=== PATIENT | female | born 1955 | race Caucasian/White ===

== ENCOUNTER 2019-06-11 00:58 | Day surgery (SDC) | payer MEDICARE, SELFPAY ==
[2019-06-06 11:47] VITALS: BMI 25.0
[2019-06-11 09:54] VITALS: BP 123/85; PULSE 85; RESP 16; TEMP 36.6; O2SAT 100; BMI 25.2
[2019-06-11] MEDS: LACTATED RINGERS 1,000 ML 150 ML IV CONT (10:00)
--- NOTE | 2019-06-11 10:28 | WPDANESEPPF ---
Anes - Initial Pre Proc Eval Procedure: Operation Date: 06/11/19 11:00 Proposed Procedures p Screening Colonoscopy - Geremias Brandt MD Date/Time: 06/11/19 10:28 Surgeon: Geremias Brandt MD Pre Op Diagnosis: hx of colon polyps Patient Data Age: 64 Gender: F Height: 5 ft 2 in Weight: 62.6 kg Last Vital Signs Temp 36.6 C 06/11/19 09:54 Pulse 85 06/11/19 09:54 Resp 16 06/11/19 09:54 BP 123/85 06/11/19 09:54 Pulse Ox 100 06/11/19 09:54 Allergies Allergy/AdvReac Type Severity Reaction Status Date / Time tramadol Allergy Unknown Dizziness Verified 06/11/19 09:51 Home Medications Medication Instructions Recorded Confirmed Type oxybutynin chloride 5 mg 5 mg PO DAILY #90 tablet 01/30/19 06/11/19 Rx tablet,extended release 24 hr atorvastatin 10 mg tablet 10 mg PO .every other day tablet 06/03/19 06/11/19 History cyclobenzaprine 10 mg tablet 10 mg PO TID tablet 06/03/19 06/11/19 History calcium carbonate-vitamin D3 1 tablet PO DAILY 06/06/19 06/11/19 History [Calcium 500 + D] cetirizine [Zyrtec] 10 mg PO DAILY 06/06/19 06/11/19 History cranberry extract 50 mg PO DAILY 06/06/19 06/11/19 History cyanocobalamin (vitamin B-12) 1,000 mcg PO DAILY 06/06/19 06/11/19 History [Vitamin B-12] famotidine 10 mg PO DAILY 06/06/19 06/11/19 History inulin [Fiber Gummies] 1 g PO DAILY 06/06/19 06/11/19 History melatonin 5 mg PO HS PRN 06/06/19 06/11/19 History naproxen 250 mg PO BID PRN 06/06/19 06/11/19 History omega 5-vyv-jpo-fish oil [Fish Oil] 1 cap PO DAILY 06/06/19 06/11/19 History pyridoxine (vitamin B6) [Vitamin 25 mg PO DAILY 06/06/19 06/11/19 History B-6] turmeric 400 mg PO DAILY 06/06/19 06/11/19 History Patient hx anesthesia problems: none Family hx anesthesia problems: none PMFSH Surgical History Surgical History History of tubal ligation Family History Family History Father Hypertension Social History Social History Smoking packs per day: 1 Smoking cigarettes per day: 20.0 Years smoked: 30 Smoking pack-years: 30.00 Smoking status: Former smoker Tobacco type: cigarettes Second hand tobacco smoke exposure: No Smoking end date: 03/27/05 Alcohol intake: current Drinks per week: 8 Substance use: never Substance use type: does not use Gender identity (if verbalized by the patient): Female Anes - Eval Final PreProcedure Day of Procedure 06/11/19 10:28 Patient weight: normal Heart: regular rate and rhythm Lungs: decreased breath sounds Airway: Mallampati scale class II Neurological: alert and oriented Last oral intake: >/= 8 hours ASA classification: II Emergent: no Anesthetic plan: proceed Anesthesia type and monitoring: general GIVS and standard monitoring Informed Consent: The patient's anesthetic plan and its attendant risks and benefits were discussed with the patient/family/POA. Questions were solicited and answers provided to the satisfaction of the patient/family/POA.
--- NOTE | 2019-06-11 10:47 | PM.HPGS ---
History of Present Illness History of Present Illness Consent: Risks, benefits, and alternatives have been discussed and questions answered. Patient agrees to proceed with procedure. Chief complaint: hx of colon polyps Narrative: Maria Esther Rader is a 64 year old female Referred for screening colonoscopy. She has had polyps removed in the past. Her last colonoscopy was 7 years ago [facility] Surgical History Surgical History History of tubal ligation Family History Family History Father Hypertension Social History Social History Smoking packs per day: 1 Smoking cigarettes per day: 20.0 Years smoked: 30 Smoking pack-years: 30.00 Smoking status: Former smoker Tobacco type: cigarettes Second hand tobacco smoke exposure: No Smoking end date: 03/27/05 Alcohol intake: current Drinks per week: 8 Substance use: never Substance use type: does not use Gender identity (if verbalized by the patient): Female Meds Home Medications and Allergies Home Medications Medication Instructions Recorded Confirmed Type oxybutynin chloride 5 mg 5 mg PO DAILY #90 tablet 01/30/19 06/11/19 Rx tablet,extended release 24 hr atorvastatin 10 mg tablet 10 mg PO .every other day tablet 06/03/19 06/11/19 History cyclobenzaprine 10 mg tablet 10 mg PO TID tablet 06/03/19 06/11/19 History calcium carbonate-vitamin D3 1 tablet PO DAILY 06/06/19 06/11/19 History [Calcium 500 + D] cetirizine [Zyrtec] 10 mg PO DAILY 06/06/19 06/11/19 History cranberry extract 50 mg PO DAILY 06/06/19 06/11/19 History cyanocobalamin (vitamin B-12) 1,000 mcg PO DAILY 06/06/19 06/11/19 History [Vitamin B-12] famotidine 10 mg PO DAILY 06/06/19 06/11/19 History inulin [Fiber Gummies] 1 g PO DAILY 06/06/19 06/11/19 History melatonin 5 mg PO HS PRN 06/06/19 06/11/19 History naproxen 250 mg PO BID PRN 06/06/19 06/11/19 History omega 6-tyq-muk-fish oil [Fish Oil] 1 cap PO DAILY 06/06/19 06/11/19 History pyridoxine (vitamin B6) [Vitamin 25 mg PO DAILY 06/06/19 06/11/19 History B-6] turmeric 400 mg PO DAILY 06/06/19 06/11/19 History Allergies Allergy/AdvReac Type Severity Reaction Status Date / Time tramadol Allergy Unknown Dizziness Verified 06/11/19 09:51 Vital Signs Vital Signs - 24 hr 06/11/19 09:54 Temperature 36.6 C Pulse Rate 85 Respiratory Rate 16 Blood Pressure 123/85 Pulse Oximetry 100 Exam Resp: Auscultation: clear to auscultation bilaterally Cardio: Rate: regular rate Rhythm: regular rhythm GI: GI Palp: Yes Soft to palpation and No Tenderness to palpation present (GI) Assessment and Plan Assessment and plan (1) History of colon polyps: Code(s): Z86.010 - Personal history of colonic polyps Status: Acute Assessment and Plan: Colonoscopy with possible biopsy or polypectomy or cautery or injection of substances.
[2019-06-11 11:34] VITALS: BP 103/70; PULSE 87; RESP 16; O2SAT 97
[2019-06-11 11:44] VITALS: BP 101/68; PULSE 80; RESP 13; O2SAT 98
[2019-06-11 11:53] VITALS: BP 107/70; PULSE 71; RESP 14; O2SAT 98
== END 2019-06-11 12:14 | disposition home or self-care (01) ==
PROVIDERS: PCP Family Medicine; Visit Provider Internal Medicine Gastroenterology
PROC: 0DJD8ZZ Inspection of Lower Intestinal Tract, Via Natural or Artificial Opening Endoscopic (ICD-10-PCS; CPT 45378; principal; 2019-06-11 11:00)
DX: Z12.11 Encounter for screening for malignant neoplasm of colon (principal); D12.4 Benign neoplasm of descending colon; K64.8 Other hemorrhoids; Z87.891 Personal history of nicotine dependence
CPT/HCPCS: 45380; 88305; J2704; J7120

== ENCOUNTER → 2020-07-14 15:24 | Outpatient (CLI) | payer MEDICARE, SELFPAY ==
--- NOTE | ~2020-07-14 | MM_ITS ---
EXAMINATION: MM screening [facility] BI w papi HISTORY: Screening mammogram TECHNIQUE: Craniocaudal and mediolateral oblique 3-D tomosynthesis images were obtained and synthetic 2-D images were generated. CAD analysis was submitted and interpreted. COMPARISON: 12/05/2018, 12/01/2017, 10/13/2016 BREAST PARENCHYMAL COMPOSITION: There are scattered areas of fibroglandular density. FINDINGS: RIGHT BREAST: There is no evidence of suspicious mass, calcification, or architectural distortion to suggest malignancy. There has been no significant interval change. LEFT BREAST: An asymmetry is present in the anterior third of the upper breast 4 cm from the nipple o n the mediolateral oblique view. IMPRESSION: 1. Left breast asymmetry on the mediolateral oblique view. 2. Additional mammographic views and possible breast ultrasound are recommended. BI-RADS Category 0: Incomplete: Needs additional imaging evaluation. Reviewed, dictated and finalized at location A. IMPRESSION: 1. Left breast asymmetry on the mediolateral oblique view. 2. Additional mammographic views and possible breast ultrasound are recommended . BI-RADS Category 0: Incomplete: Needs additional imaging evaluation.
== END ==
PROVIDERS: PCP Family Medicine; Visit Provider Family Medicine
DX: Z12.31 Encounter for screening mammogram for malignant neoplasm of breast (principal); R92.8 Other abnormal and inconclusive findings on diagnostic imaging of breast
CPT/HCPCS: 77063; 77067

== ENCOUNTER → 2020-08-11 07:27 | Outpatient (CLI) | payer MEDICARE, SELFPAY ==
--- NOTE | ~2020-08-11 | MMUS_ITS ---
EXAMINATION: MM diagnostic mammo unilat LT, US breast LT complete HISTORY: Follow-up left breast asymmetry TECHNIQUE: Additional 3-D tomosynthesis images of the left breast were performed and synthetic 2-D im ages were generated. CAD analysis was submitted and interpreted. High resolution complete left breast ultrasound was performed. COMPARISON: Comparison to multiple prior studies sequentially, with oldest reviewed study dated 10/22. BREAST PARENCHYMAL COMPOSITION: Breast composed of scattered areas of fibroglandular density. FINDINGS: MAMMOGRAPHIC FINDINGS: There are no suspicious masses, calcifications or architectural distortion in the left breast to sugg est malignancy. ULTRASOUND: Complete left breast ultrasound: At 11:00, 5 cm from the nipple, there is a 3 mm cyst. No suspicious masses to suggest malignancy. IMPRESSION: 1. No evidence for malignancy in the left breast. 2. Routine yearly screening mammogram and regular clinical breast examination are recommended. BI-RADS Category 2: Benign finding(s). Reviewed, dictated and finalized at location A. IMPRESSION: 1. No evidence for malignancy in the left breast. 2. Routine yearly screening mammogram and regular clinical breast examination a re recommended. BI-RADS Category 2: Benign finding(s).
== END ==
PROVIDERS: PCP Family Medicine; Visit Provider Physician Assistant
DX: R92.8 Other abnormal and inconclusive findings on diagnostic imaging of breast (principal)
CPT/HCPCS: 76641; 77065

== ENCOUNTER → 2021-02-02 14:40 | Outpatient (CLI) | payer MEDICARE, SELFPAY ==
--- NOTE | ~2021-02-02 | XR_ITS ---
XR hip BI 2V w AP pelvis 02/02/2021 15:16 Indication: Hip pain Procedure: AP pelvis and 2 views each hip Comparison: No prior studies for comparison. Findings: There is moderate-severe osteoarthritis of the hips, left greater than right. Pelvic rings are intact. Sacral foramen are symmetric. There is a bone island in the left femur proximally. Impression: 1: Moderate-severe osteoarthritis of the hips, left greater than right. Reviewed, dictated and finalized at location A. ING PILOT INSTRUCTOR Impression: 1: Moderate-severe osteoarthritis of the hips, left greater than right.
== END ==
PROVIDERS: PCP Family Medicine; Visit Provider Family Medicine
DX: M16.0 Bilateral primary osteoarthritis of hip (principal)
CPT/HCPCS: 73521

== ENCOUNTER → 2021-02-15 13:24 | Outpatient (CLI) | payer MEDICARE, SELFPAY ==
--- NOTE | ~2021-02-15 | DEXA_ITS ---
Bone Density Report Name: ONEIDA HANSEN Age: 65 Sex: Female Ethnicity: White Date of : 1955 Indication: osteopenia; height loss; postmenopausal Referring Provider: ALBERT, RIGOBERTO Study: Bone densitometry was performed. Exam Date: February 15, 2021 Accession number: [id number] Bone Density: Region BMD T-score Z-score Classification AP Spine (L1-L4) 1.043 0.0 1.9 Normal Femoral Neck (Left) 0.670 -1.6 0.0 Osteopenia Total Hip (Left) 0.709 -1.9 -0.5 Osteopenia Femoral Neck (Right) 0.627 -2.0 -0.3 Osteopenia Total Hip (Right) 0.751 -1.6 -0.2 Osteopenia Total Hip Mean 0.730 -1.8 -0.4 Osteopenia World Health Organization criteria for BMD impression classify patients as: Normal (T-score at or above -1.0), Osteopenia (T-score between -1.0 and -2.5), or Osteoporosis (T-score at or below -2.5). 10-year Fracture Risk(1): Major Osteoporotic Fracture 11% Hip Fracture 1.8% Reported Risk Factors: [place] (), Neck BMD=0.627, BMI=25.5 (1) FRAX(R) Version 3.08. Fracture probability calculated for an untreated patient. Fracture probability may be lower if the patient has received treatment. Previous Exams: Region Exam Age BMD T-score BMD Change BMD Change Date g/cm2 vs Baseline vs Previous AP Spine(L1-L4) 02/15/2021 65 1.043 0.0 0.022 0.022 12/05/2018 63 1.020 -0.2 0.000 0.000 10/22/2016 61 1.021 -0.2 Total Hip(Left) 02/15/2021 65 0.709 -1.9 -0.043* -0.031* 12/05/2018 63 0.740 -1.7 -0.012 -0.012 10/22/2016 61 0.752 -1.6 Total Hip(Right) 02/15/2021 65 0.751 -1.6 -0.030* -0.017 12/05/2018 63 0.768 -1.4 -0.013 -0.013 10/22/2016 61 0.781 -1.3 *Denotes significance at 95% confidence level, LSC for AP Spine = 0.022 g/cm2, LSC for Total Hip = 0.027 g/cm2 Clinical Information Provided by Patient: Has used the following medications: Vitamin D, Calcium Patient maximum height was 63.5 Menopause Age: 53 Drinks caffeinated beverages Onset of menses at age 8 Number of children 2 Impression: The patient has low bone mass, based on the Right Femoral Neck T-score. The patient has an estimated ten-year risk of hip fracture of 1.8% and an estimated ten-year risk of major fracture of 11%, based on the WHO FRAX algorithm. The BMD for the Total Hip(Left) decreased, changing by -0.031 since the last
== END ==
PROVIDERS: PCP Family Medicine; Visit Provider Nurse Practitioner
DX: M85.88 Other specified disorders of bone density and structure, other site (principal); M85.852 Other specified disorders of bone density and structure, left thigh; M85.851 Other specified disorders of bone density and structure, right thigh
CPT/HCPCS: 77080

== ENCOUNTER 2021-04-15 09:30 | Outpatient (CLI) | payer MEDICARE, SELFPAY ==
--- NOTE | ~2021-04-15 | XR_ITS ---
EXAMINATION: XR lg joint inject/asp w image DATE: 04/15/2021 10:10 INDICATION: Left hip osteoarthritis presenting with pain TECHNIQUE: A time-out was performed to verify the patient's name, date of , and procedure to b e performed. The procedure including the risks, benefits, and alternatives was discussed with the pat ient. Risks discussed included bleeding and infection. The patient understood the risks and agreed to proceed. The skin overlying the left hip joint was prepped and draped in usual sterile fashion. An esthetic was administered with 1% lidocaine subcutaneously. A 22 G needle was advanced under fluoros copic guidance into the joint. Injection of 1 mL of Omnipaque 240 confirmed intra-articular position of the needle. Subsequently, injectate consisting of 4 mL of a 1:1 mixture of 0.5% bupivacaine: 40 mg/mL Depo-Medrol for a total dosage of 80 mg Depo-Medrol was instilled. Washout of contrast was seen confirming intra-articular administration. The needle was removed and the entry site was cleaned and dressed. There were no immediate complications. Fluoroscopy exposure time was 0.1 minutes. The tota l number of images was 2. FINDINGS: Real-time fluoroscopy demonstrates the needle in the left hip joint. Patient's pain prior t o procedure:07/04. Patient's pain following the procedure: 04/05. IMPRESSION: 1. Successful left hip joint injection of local anesthetic and steroid with decrease in the patient's presenting pain. Reviewed, dictated and finalized at location A. SPORTATION DEPARTMENT SUPERVISOR IMPRESSION: 1. Successful left hip joint injection of local anesthetic and steroid with dec rease in the patient's presenting pain.
== END 2021-04-15 09:31 | disposition home or self-care (01) ==
LOC: ANHIMG 09:34
PROVIDERS: PCP Family Medicine; Visit Provider Nurse Practitioner Family
DX: M25.552 Pain in left hip (principal)
CPT/HCPCS: 20610; 77002; J1030; Q9966

== ENCOUNTER 2021-07-28 09:40 | Outpatient (CLI) | payer MEDICARE, SELFPAY ==
--- NOTE | ~2021-07-28 | XR_ITS ---
EXAMINATION: XR lg joint inject/asp w image, XR lg joint inject/asp add DATE: 07/28/2021 10:34 INDICATION: Bilateral hip osteoarthritis descending with pain TECHNIQUE: A time-out was performed to verify the patient's name, date of , and procedure to b e performed. The procedure including the risks, benefits, and alternatives was discussed with the pat ient. Risks discussed included bleeding and infection. The patient understood the risks and agreed to proceed. Attention was first turned to the right hip. The skin overlying the right hip joint was pr epped and draped in usual sterile fashion. Anesthetic was administered with 1% lidocaine subcutaneou sly. A 22 G needle was advanced under fluoroscopic guidance into the joint. Injection of 1 mL of Om nipaque 240 confirmed intra-articular position of the needle. Subsequently, injectate consisting of 4 mL of a: 1 mixture of 0.5% Marcaine: 40 mg/mL Depo-Medrol for a total dosage of 80 mg Depo-Medrol w as instilled. Washout of contrast was seen confirming intra-articular administration. The needle was removed and the entry site was cleaned and dressed. Attention was then turned to the left hip. The sk in overlying the left hip joint was prepped and draped in usual sterile fashion. Anesthetic was admi nistered with 1% lidocaine subcutaneously. A 22 G needle was advanced under fluoroscopic guidance in to the joint. Injection of 1 mL of Omnipaque 240 confirmed intra-articular position of the needle. Subsequently, injectate consisting of 4 mL of a: 1 mixture of 0.5% Marcaine: 40 mg/mL Depo-Medrol for a total dosage of 80 mg Depo-Medrol was instilled. Washout of contrast was seen confirming intra-art icular administration. The needle was removed and the entry site was cleaned and dressed. There were no immediate complications. Fluoroscopy exposure time was 0.1 minutes. The total number of images was 4. FINDINGS: Real-time fluoroscopy demonstrates the needle and contrast first in the right hip joint and subsequently in the left hip joint. Patient's pain prior to procedure:3/10. Patient's pain followin g the procedure: 0/10. IMPRESSION: 1. Successful right hip joint injection of local anesthetic and steroid with decrease in the patient' s presenting pain. 2. Successful left hip joint injection of local anesthetic and steroid with decrease in the patient's presenting pain. Reviewed, dictated and finalized at location A. IMPRESSION: 1. Successful right hip joint injection of local anesthetic and steroid with de crease in the patient's presenting pain. 2. Successful left hip joint injection of local anesthetic and steroid with dec rease in the patient's presenting pain.
== END 2021-07-28 09:41 | disposition home or self-care (01) ==
PROVIDERS: PCP Family Medicine; Visit Provider Nurse Practitioner Family
DX: M16.0 Bilateral primary osteoarthritis of hip (principal)
CPT/HCPCS: 20610; 77002; J1040; Q9966

== ENCOUNTER → 2021-08-30 13:57 | Outpatient (CLI) | payer MEDICARE, SELFPAY ==
--- NOTE | ~2021-08-30 | MM_ITS ---
EXAMINATION: MM screening [facility] BI w papi HISTORY: Screening mammogram TECHNIQUE: Craniocaudal and mediolateral oblique 3-D tomosynthesis images were obtained and synthetic 2-D images were generated. CAD analysis was submitted and interpreted. COMPARISON: 08/11/2020, 07/14/2020, 12/05/2018 BREAST PARENCHYMAL COMPOSITION: There are scattered areas of fibroglandular density. FINDINGS: Stable bilateral breast masses are consistent with benign findings. There is no suspicious mass, calcification, or architectural distortion to suggest malignancy in either breast. There has be en no suspicious interval change. IMPRESSION: 1. No mammographic evidence of malignancy. 2. Recommend routine screening mammography in one year. BI-RADS Category 2: Benign finding(s). Reviewed, dictated and finalized at location A.
== END ==
PROVIDERS: PCP Family Medicine; Visit Provider Nurse Practitioner
DX: Z12.31 Encounter for screening mammogram for malignant neoplasm of breast (principal)
CPT/HCPCS: 77063; 77067

== ENCOUNTER 2022-01-06 13:52 | Outpatient (CLI) | payer MEDICARE, SELFPAY ==
--- NOTE | 2022-01-06 14:55 | ECG_ITS ---
Measurements Intervals Lenore Rate: 64 P: 59 ND: 171 QRS: 22 QRSD: 83 T: 35 QT: 405 QTc: 419 Interpretive Statements SINUS RHYTHM NO PREVIOUS ECG AVAILABLE FOR COMPARISON Electronically Signed On 01-06-2022 15:55:06 CDT by Gavin New M.D.
[2022-01-06 15:19] LABS: Basophils Absolute Auto 0.1 K/mm3 (0.0-0.1); Basophils Percent Auto 0.8 % (0.2-1.2); Eosinophils Absolute Auto 0.2 K/mm3 (0-0.3); Eosinophils Percent Auto 2.7 % (0-4.4); Hematocrit 38.7 % (37.0-47.0); Hemoglobin 13.1 g/dL (12.0-15.0); Immature Granulocyte Absolute 0.05 K/mm3 (0.00-0.031); Immature Granulocyte Percent A 0.6 % (0-0.5); Lymphocytes Absolute Auto 2.27 K/mm3 (0.9-3.2); Mean Corpuscular HGB Conc 33.9 g/dl (32-36); Mean Corpuscular Hemoglobin 32.8 pg (26-34); Mean Corpuscular Volume 96.8 fl (80-100); Mean Platelet Volume 8.9 fl (7.4-10.4); Monocytes Absolute Auto 0.6 K/mm3 (0.1-0.6); Monocytes Percent Auto 7.5 % (2.6-8.5); Neutrophils Absolute Auto 4.6 K/mm3 (1.3-6.7); Neutrophils Percent Auto 59.4 % (45.5-73.1); Platelet Count Result 340 k/mm3 (150-375); Red Cell Distribution Width 12.1 % (11.5-14.5); White Blood Count 7.8 K/mm3 (4.5-10.0)
[2022-01-06 15:22] LABS: Add Urine Microscopic? NO; Appearance Urine Clear (Clear); Bilirubin Urine Negative (Negative); Blood Urine Negative (Negative); Color Urine Straw (Yellow); Glucose Urine UA Negative (Negative); Ketones Urine Negative (Negative); Leukocyte Esterase Ur Negative LEU/UL (Negative); Nitrate Urine Negative (Negative); Protein Urine Negative (Negative); Specific Grav Ur 1.013 (1.001-1.035); Urobilinogen Urine Negative mg/dL (<2.0)
[2022-01-06 15:31] LABS: Prothrombin Time 12.9 Seconds (11.1-14.7)
[2022-01-06 15:32] LABS: Partial Thromboplastin Time 29.5 SECONDS (22.3-36.8)
[2022-01-06 15:33] LABS: Albumin Level 4.8 g/dL (3.5-5.1); Anion Gap 11 mmol/L (8-16); Blood Urea Nitrogen 17 mg/dL (7-17); Calcium 9.6 mg/dL (8.4-10.2); Carbon Dioxide 29 mmol/L (22-30); Chloride 99 mmol/L (98-107); Estimated Glomerular Filt Rate 55; Glucose 99 mg/dL (65-110); Potassium 4.2 mmol/L (3.4-5.0); Sodium 139 mmol/L (137-145)
[2022-01-06 15:37] LABS: Hemoglobin A1C 5.2 % (<5.7)
[2022-01-06 15:43] LABS: Urine Cotinine NEGATIVE
== END 2022-01-06 13:53 | disposition home or self-care (01) ==
LOC: ANHSURGERY 13:56
PROVIDERS: PCP Family Medicine; Visit Provider Orthopaedic Surgery
DX: M16.12 Unilateral primary osteoarthritis, left hip (principal); Z01.818 Encounter for other preprocedural examination
CPT/HCPCS: 80048; 80307; 81003; 82040; 83036; 85025; 85610; 85730; 86850; 86900; 86901; 87081; 93005

== ENCOUNTER 2022-01-19 01:04 | Day surgery (SDC) | payer MEDICARE, SELFPAY ==
[2022-01-06 14:04] VITALS: BMI 26.5
--- NOTE | 2022-01-06 14:32 | PC.NURSE ---
Report to the Outpatient Waiting Room, entrance under the green pavilion located off [facility], at time _0900 on date __01/19/22 . OR Time: _1100 . Time changes happen often and if your time is changed the preop area will call you the afternoon before. - You and your visitor will be asked to self-screen and do not enter if you have any COVID symptoms. - We encourage only one visitor and NO visitors under age 16 are allowed at this time. Your visitor will receive communication by the phone number that is given day of service. - The patient visitor is requested to social distance or may leave the building when not with patient due to restrictions. - A mask is required within the hospital. Patients may have clear liquids (water, carbonated beverages, clear teas, apple juice) until 3 hours prior to surgery with a maximum of 20 ounces. - No food from midnight until time of surgery - Infants may have breast milk until 4 hours before surgery, infant formula 6 hours prior to surgery. - Children will be allowed to drink immediately following surgery. If applicable, please bring a bottle or sippy cup to assist with drinking. Juice, water, soda, and popsicles are readily available. For infants on formula, please bring formula the day of surgery. Pacifiers are allowed. Take the following medications with a SIP of water the morning of surgery: ___ESCITALOPRAM Medications to discontinue per physician ___ALL VITAMINS AND SUPPLEMENTS 3 DAYS PRE OP. PT STATES OK TO CONTINUE CELEBREX PER DR GUPTA Date to take last dose__01/15/22 Please no make-up, nail italian, hairspray, perfume, deodorant, or body powder the day of surgery. No jewelry (including any body piercings) or valuables the day of surgery, leave them at home. Please take a shower or bath the night before, or the morning of, surgery with an antibacterial soap. Wear comfortable, loose fitting clothing. Children are encouraged to wear pajamas. - Jewelry must be removed prior to entering the operating room. Rings and piercings that are not removed may be cut off. - The hospital will not accept responsibility for valuables. - Please leave all valuables, including medications, at home the day of surgery. If you are going home after surgery, a licensed taxi truck driver must drive you home. - NO public transportation without another adult. - We recommend that an adult stay with you for 24 hours following discharge. - We also recommend that you do not drive, make important decision, drink alcoholic beverages, or take any drugs that were not prescribed by your health care provider for at least 24 hours after your discharge time. For Pediatric surgeries, we recommend two adults accompany the child home. Follow any additional instructions given to you from your surgeon. If you or anyone in your household have experienced Covid symptoms in the past week, please notify your surgeon or the nurse liaison at the phone number below for possible testing. VERBAL AND WRITTEN instructions given to _PATIENT and asked if any additional questions and then verbalized understanding. Patient advised to call surgeon office or pre surgery nurse liaison [phone] if any additional questions.
[2022-01-06 14:50] VITALS: BP 144/80; PULSE 67; RESP 18; TEMP 37.2; O2SAT 99
--- NOTE | 2022-01-18 14:28 | WPDANESEPPF ---
Anes - Initial Pre Proc Eval Procedure: Operation Date: 01/19/22 11:00 Proposed Procedures p Left Total Hip Arthroplasty, Left Foot Plantar Fascia Injection - Justus Mcbride MD Date/Time: 01/18/22 14:28 Surgeon: Justus Mcbride MD Pre Op Diagnosis: left hip DJD, left plantar fascitis Patient Data Age: 66 Gender: F Height: 1.59 m Weight: 66.9 kg Last Vital Signs Temp 37.2 C 01/06/22 14:50 Pulse 67 01/06/22 14:50 Resp 18 01/06/22 14:50 BP 144/80 H 01/06/22 14:50 Pulse Ox 99 01/06/22 14:50 O2 Del Method Room Air 01/06/22 14:50 Allergies Allergy/AdvReac Type Severity Reaction Status Date / Time tramadol Allergy Unknown Dizziness Verified 01/10/22 14:29 AND NAUSEA Home Medications Medication Instructions Recorded Confirmed Type calcium carbonate 500 mg-vitamin 1 tablet PO DAILY 06/06/19 01/19/22 History D3 5 mcg (200 unit) tablet (Calcium 500 + D) cetirizine 10 mg capsule (Zyrtec) 10 mg PO DAILY 06/06/19 01/19/22 History cyanocobalamin (vitamin B-12) 1,000 mcg PO DAILY 06/06/19 01/19/22 History 1,000 mcg tablet (Vitamin B-12) famotidine 10 mg tablet 10 mg PO DAILY 06/06/19 01/19/22 History omega 7-kqj-boa-fish oil 1,000 mg 1 cap PO DAILY 06/06/19 01/19/22 History (120 mg-180 mg) capsule (Fish Oil) pyridoxine (vitamin B6) 25 mg 25 mg PO DAILY 06/06/19 01/19/22 History tablet (Vitamin B-6) turmeric 400 mg capsule 400 mg PO DAILY 06/06/19 01/19/22 History atorvastatin 10 mg tablet See Rx Instructions .Route 06/15/21 01/19/22 Rx .COMPLEX #90 tabs oxybutynin chloride 5 mg 5 mg PO DAILY #90 tabs 06/15/21 01/19/22 Rx tablet,extended release 24 hr escitalopram oxalate 10 mg tablet See Rx Instructions .Route 11/19/21 01/19/22 Rx .COMPLEX #90 tabs acetaminophen 650 mg 1,300 mg PO Q12H PRN Pain 01/06/22 01/19/22 History tablet,extended release (Tylenol Arthritis Pain) cholecalciferol (vitamin D3) 1,250 1,250 mcg PO WEEKLY 01/06/22 01/19/22 History mcg (50,000 unit) tablet celecoxib 200 mg capsule (Celebrex) 200 mg PO BID #60 caps 01/10/22 01/19/22 Rx chlorhexidine gluconate 4 % 1 applic topical ONCE #237 mL 01/10/22 01/19/22 Rx topical liquid (Hibiclens) ECG: Date of Service: 01/06/22 Procedure(s): CA 12 lead EKG Accession Number(s): [id number] cc: ~ ? Measurements Intervals? Raphine? Rate: ? 64 ? P:? 59 DE: ? 171? QRS:? 22 QRSD: ? 83 ? T:? 35 QT: ? 405? QTc:? 419? Interpretive Statements SINUS RHYTHM NO PREVIOUS ECG AVAILABLE FOR COMPARISON Electronically Signed On 01-06-2022 15:55:06 CDT by Gavin New M.D. Patient hx anesthesia problems: none Family hx anesthesia problems: none Results Review: All pre-operative results and documents have been reviewed as part of the pre-operative evaluation. [facility] Past Medical History Medical History Anxiety Chronic right hip pain Degenerative joint disease (DJD) of hip Depression Dizziness Former smoker History of colon polyps HLD (hyperlipidemia) Left hip pain OAB (overactive bladder) Osteopenia Trochanteric bursitis Urinary frequency Vertigo Surgical History Surgical History History of tubal ligation Family History Family History Father Hypertension Social History Social History (Updated 12/09/21 @ 11:00 by Nini Gomes MA) Smoking packs per day: 1 Smoking cigarettes per day: 20.0 Years smoked: 30 Smoking pack-years: 30.00 Smoking status: Former smoker Tobacco type: cigarettes Second hand tobacco s
[2022-01-19] VITALS (13 sets, daily range): BP systolic 110–126; BP diastolic 60–80; PULSE 64–83; RESP 10–20; TEMP 36.2–36.9; O2SAT 98–100
--- NOTE | ~2022-01-19 | XR_ITS ---
EXAMINATION: X hip hip LT 1V DATE: 01/19/2022 15:31 INDICATION: Left total hip arthroplasty TECHNIQUE: Anteroposterior and cross-table lateral views of the left hip were obtained. COMPARISON: 12/09/2021 FINDINGS: Interval placement of a noncemented left total hip arthroplasty which appears well seated in near-marcia tomic alignment. Acetabular component is affixed with at least 2 screws. No fracture. Expected small amount of soft tissue gas at the operative bed. IMPRESSION: 1. Left total hip arthroplasty placement, negative for postoperative purposes. Reviewed, dictated and finalized at location A.
--- NOTE | 2022-01-19 07:21 | WPDHPUPDATE1 ---
History and Physical Update Update Date/Time: 01/19/22 07:21 History and Physical has been reviewed, including an updated exam of the patient. There are NO changes in the patient's condition. Risks, benefits, and alternatives have been discussed and questions answered. Patient agrees to proceed with procedure.
[2022-01-19] MEDS: ACETAMINOPHEN 500 MG TABLET 1000 MG PO (09:30)
[2022-01-19] MEDS: LACTATED RINGERS 1,000 ML 30 ML IV CONT ×2 (09:45→15:20)
[2022-01-19] MEDS: TRANEXAMIC ACID 1,000MG/ISO100 1,000 MG/100 ML BAG 200 MG IVPB (10:14)
--- NOTE | 2022-01-19 11:59 | WPDHPUPDATE1 ---
History and Physical Update Update Date/Time: 01/19/22 11:59 WE WILL INJECT THE LEFT FOOT PLANTAR FASCIA WELL DUE TO HER PLANTAR FASCIITIS History and Physical has been reviewed, including an updated exam of the patient. There are NO changes in the patient's condition. Risks, benefits, and alternatives have been discussed and questions answered. Patient agrees to proceed with procedure.
[2022-01-19] MEDS: ceFAZolin 2 GM/D5W 50 ML 2 GM/50 ML BAG IVPB ×2 (12:05→19:55)
[2022-01-19] MEDS: TRANEXAMIC ACID 1,000 MG/10 ML AMPUL 1000 MG IV PUSH (14:25)
[2022-01-19] MEDS: LIDOCAINE HCL 1% PF 30 ML VIAL INFILTRATE (14:37)
[2022-01-19] MEDS: methylPREDNISolone ACETATE 80 MG/ML VIAL IM (14:38)
--- NOTE | 2022-01-19 15:22 | P.OP_ITS ---
Procedure Note - Detailed Date of Procedure 01/19/22 Pre-op Diagnosis left hip DJD, left plantar fascitis Post-op Diagnosis Same Procedure Performed L VICENTE Surgeon Justus Mcbride MD Anesthesia General Description of Procedure THE PATIENT WAS TAKEN TO THE OPERATING ROOM IN STABLE CONDITION AND WAS PLACED IN THE LATERAL DECUBITUS AND THE LEFT LOWER EXTREMITY WAS PREPPED AND DRAPED IN THE STERILE FASHION. INCISION WAS MADE IN THE POSTERIOR LATERAL SIDE OF THE HIP, DOWN TO THE FASCIA LAYER. THE FASCIA WAS INCISED. THE HIP WAS EXPOSED. THE SHORT EXTERNAL ROTATORS WERE EXPOSED. THE SCIATIC NERVE WAS IDENTIFIED. INCISION WAS MADE THROUGH THE SHORT EXTERNAL ROTATORS AND THE CAPSULE OF THE HIP JOINT. THE HIP WAS DISLOCATED. AN OSTEOTOMY WAS MADE TO THE FEMORAL NECK ABOUT 1 CM PROXIMAL TO THE LESSER TROCHANTER. THE ACETABULUM WAS EXPOSED. THERE WAS SEVERE DJD SEEN. BEGINNING WITH A 44 REAMER THE ACETABULUM WAS REAMED TO 49 MM. A 50 MM TRIAL WAS PLACED IN 35 DEG OF ABDUCTION AND ANTEVERSION WAS IN ALIGNMENT WITH THE TRANS ACETABULAR LIGAMENT. THE FIT WAS EXCELLENT. THE TRIAL WAS REMOVED. A 50 MM BIOMET G7 COMPONENT WAS THEN TAPPED IN TO PLACE IN 35 DEG OF ABDUCTION AND ANTEVERSION IN ALIGNMENT WITH THE TRANSVERSE ACETABULAR LIGAMENT. THE FIT WAS EXCELLENT. 2 SCREWS WERE PLACED AND HAD GOOD BITES. THE ACETABULAR LINER WAS PLACED AND CHECKED FOR STABILITY. NEXT THE FEMUR WAS PREPARED WITH INITIAL CANAL FINDER THEN SEQUENTIAL BROACHING WITH A TAPERLOC HIP SYSTEM, UNTIL A 10 BROACH FIT WELL IN 15 OF ANTEVERSION. A +3 HIGH OFFSET NECK WITH 36 MM HEAD TRIAL WAS PLACED. THE SHUCK TEST WAS EXCELLENT AND THE STABILITY IN FLEXION AND ROTATION WAS EXCELLENT. LEG LENGTHS WERE GROSSLY EQUAL . TRIALS WERE REMOVED. A BIOMET TAPERLOC 9 STEM WAS PLACED WITH A HIGH OFFSET NECK THE FIT WAS EXCELLENT IN 15 DEG OF ANTEVERSION. A +3 CERAMIC 36 MM FEMORAL CERAMIC HEAD WAS PLACED. THE HIP WAS TRIALED AND THE STABILITY WAS EXCELLENT WERE THE LEG LENGTHS AND THE SHUCK TEST. THE WOUND WAS IRRIGATED WITH STERILE BETADINE AND WATER FOR 3 MIN. THEN WASHED AGAIN. THE CAPSULE AND THE EXTERNAL ROTATORS WERE APPROXIMATED WITH NUMBER 1 VICRYL. THE FASCIA WITH No 2 QUIL AND THE SUB CUTANEOUS LAYER WITH 2-0 ABSORBABLE SUTURE WITH A RUNNING 3-0 SUBCUTICULAR LAYER WELL. DERMABOND WAS PLACED AND STERILE DRESSING WAS APPLIED. THE LEFT FOOT WAS THEN PREPPED AND DEPO MEDROL 80 MG 1 cc AND LIDOCAINE 1% 2cc WAS INJECTED TO THE PLATAR FASCIA NEAR THE HEEL. PATIENT WAS PLACED BACK ON TO THE SUPINE POSITION AND WAS EXTUBATED Estimated Blood Loss 800 Complications No immediate complications Condition Stable Disposition PACU
[2022-01-19] MEDS: fentaNYL CITRATE INJ (*CRX) 100 MCG/2 ML VIAL 25 MCG IV PUSH ×8 (15:39→16:54)
--- NOTE | 2022-01-19 17:17 | ADMGEN ---
This patient, Maria Esther Rader, was admitted to Medical Room 253-01. Patient/family oriented to hospital policies and general routines including ID bracelet, bed and alarms, visiting hours, pain management, procedures, bathroom and other care routines, personal items, smoking policy, room service/diet, and visiting hours. Information on how to activate the Rapid Response Team has been discussed. Patient/Family are encouraged to report perceived risks to care and to ask questions if they do not understand what they are told or what they should do.
[2022-01-19] MEDS: MORPHINE SULFATE (*CRX) 4 MG/ML INJ 3 MG IV PUSH (17:50)
[2022-01-19] MEDS: SENNA/DOCUSATE SODIUM TABLET 2 TAB PO (17:52)
[2022-01-19] MEDS: CELECOXIB 200 MG CAPSULE PO (17:52)
[2022-01-19] MEDS: DEXTROSE 5%/0.45% SOD CHL 1,000 ML 80 ML IV CONT (17:52)
[2022-01-19] MEDS: ATORVASTATIN 10 MG TABLET BY MOUTH (17:53)
[2022-01-19] MEDS: ESCITALOPRAM OXALATE 10 MG TABLET BY MOUTH (17:53)
[2022-01-19] MEDS: oxyCODONE HCL (*CRX) 5 MG TAB IR PO ×2 (19:54→23:54)
[2022-01-19] MEDS: ASPIRIN 325 MG ENTERIC TABLET PO (19:55)
[2022-01-20 02:45] VITALS: BP 105/61; PULSE 70; RESP 16; TEMP 36.6; O2SAT 97
[2022-01-20] MEDS: ceFAZolin 2 GM/D5W 50 ML 2 GM/50 ML BAG IVPB ×2 (03:21→11:17)
[2022-01-20] MEDS: oxyCODONE HCL (*CRX) 5 MG TAB IR PO ×2 (04:11→08:31)
[2022-01-20 05:19] LABS: Basophils Percent Auto 0.2 % (0.2-1.2); Eosinophils Percent Auto 0.1 % (0-4.4); Hematocrit 26.5 % (37.0-47.0); Hemoglobin 8.8 g/dL (12.0-15.0); Immature Granulocyte Absolute 0.08 K/mm3 (0.00-0.031); Immature Granulocyte Percent A 0.6 % (0-0.5); Lymphocytes Absolute Auto 1.14 K/mm3 (0.9-3.2); Lymphocytes Percent Auto 8.6 % (18.3-44.2); Mean Corpuscular HGB Conc 33.2 g/dl (32-36); Mean Corpuscular Hemoglobin 33.1 pg (26-34); Mean Corpuscular Volume 99.6 fl (80-100); Mean Platelet Volume 9.4 fl (7.4-10.4); Monocytes Absolute Auto 1.5 K/mm3 (0.1-0.6); Monocytes Percent Auto 11.4 % (2.6-8.5); Neutrophils Absolute Auto 10.5 K/mm3 (1.3-6.7); Neutrophils Percent Auto 79.1 % (45.5-73.1); Platelet Count Result 221 k/mm3 (150-375); Red Blood Count 2.66 M/mm3 (4.2-5.4); Red Cell Distribution Width 12.8 % (11.5-14.5); White Blood Count 13.3 K/mm3 (4.5-10.0)
[2022-01-20 05:31] LABS: Anion Gap 11 mmol/L (8-16); Blood Urea Nitrogen 10 mg/dL (7-17); Calcium 7.9 mg/dL (8.4-10.2); Carbon Dioxide 26 mmol/L (22-30); Chloride 97 mmol/L (98-107); Estimated CRCL calculation 47 ml/min; Estimated Glomerular Filt Rate > 60; Glucose 138 mg/dL (65-110); Potassium 3.6 mmol/L (3.4-5.0); Sodium 134 mmol/L (137-145)
[2022-01-20 06:45] VITALS: BP 103/59; PULSE 90; RESP 20; TEMP 36.4; O2SAT 97
[2022-01-20] MEDS: polyethylene glycoL 3350 17 GM POWD.PACK PO (08:33)
[2022-01-20] MEDS: FAMOTIDINE 20 MG TABLET PO (08:34)
[2022-01-20] MEDS: SENNA/DOCUSATE SODIUM TABLET 2 TAB PO (08:34)
[2022-01-20] MEDS: CELECOXIB 200 MG CAPSULE PO (08:34)
[2022-01-20] MEDS: ASPIRIN 325 MG ENTERIC TABLET PO (08:34)
[2022-01-20] MEDS: ESCITALOPRAM OXALATE 10 MG TABLET BY MOUTH (08:35)
[2022-01-20] MEDS: CYANOCOBALAMIN 1,000 MCG TABLET 1000 MCG PO (08:35)
[2022-01-20] MEDS: LORATADINE 10 MG TABLET PO (08:35)
--- NOTE | 2022-01-20 09:20 | P.PNAN_ITS ---
Anes - Prog Note Post-Op Date/Time: 01/20/22 09:20 Vital Signs: Last Vital Signs Temp 36.4 C 01/20/22 06:45 Pulse 90 01/20/22 06:45 Resp 20 01/20/22 06:45 BP 103/59 L 01/20/22 06:45 Pulse Ox 97 01/20/22 06:45 O2 Del Method Room Air 01/20/22 07:50 O2 Flow Rate 8 01/19/22 15:55 Pain Score (VAS): 0 I/O: Intake & Output 01/19/22 01/20/22 01/20/22 23:59 07:59 15:59 Intake Total 1190 450 Output Total 500 Balance 1190 -50 Laboratory Tests 01/20/22 05:01 01/20/22 05:01 01/20/22 01/20/22 05:01 05:01 WBC 13.3 H RBC 2.66 L Hgb 8.8 L D Hct 26.5 L MCV 99.6 MCH 33.1 MCHC 33.2 RDW 12.8 Plt Count 221 MPV 9.4 Immature Gran % (Auto) 0.6 H Neut % (Auto) 79.1 H Lymph % (Auto) 8.6 L [place] % (Auto) 11.4 H Eos % (Auto) 0.1 Baso % (Auto) 0.2 Lymph # (Auto) 1.14 [place] # (Auto) 1.5 H Eos # (Auto) 0.0 Baso # (Auto) 0.0 Abs Immat Gran (auto) 0.08 H Absolute Neuts (auto) 10.5 H Absolute Nucleated RBC 0.0 Nucleated RBC % 0.0 Sodium 134 L Potassium 3.6 Chloride 97 L Carbon Dioxide 26 Anion Gap 11 BUN 10 D Creatinine 0.80 Estim Creat Clear Calc 47 Estimated GFR > 60 Glucose 138 H Calcium 7.9 L Patient Feedback: Patient satisfied with anesthetic care.
--- NOTE | 2022-01-20 09:40 | PM.PNORT ---
Progress Note: A&P Assessment and Plan (1) S/P total hip arthroplasty: Qualifiers: Laterality: left Qualified Code(s): Z96.642 - Presence of left artificial hip joint Code(s): Z96.649 - Presence of unspecified artificial hip joint Status: Acute Assessment and Plan: POD #1 : Left VICENTE Continue PT/OT. WBAT. Walker. HIGH FALL RISK. Continue pain control. Ice hip. Protect skin. DVT prophylaxis with Aspirin. SCDs. Incentive Spirometry Use reviewed. Monitor Dressing. Change prior to discharge. Bowel Regimen. Dispo: Home with Home Health pending progress with PT/OT Subjective Subjective Date/Time Seen: 01/20/22 09:40 Post Op day: 1 Principal diagnosis: Left VICENTE Interval history: POD #1: Left VICENTE Patient doing very well. Pain well controlled. Working well with PT/OT. Hopeful for discharge home today. Review of Systems Constitutional: Constitutional: Denies chills, Denies fatigue, Denies fever(s), Denies night sweats and Denies weakness Cardiovascular: Cardiovascular: Denies chest pain, Denies lightheadedness, Denies palpitations and Denies dyspnea Respiratory: Respiratory: Denies cough, Denies dyspnea and Denies wheezing Gastrointestinal: Gastrointestinal: Denies abdominal pain, Denies diarrhea, Denies nausea and Denies vomiting Musculoskeletal: Musculoskeletal: Reports arthralgias (left hip ), Reports joint swelling (left hip ) and Denies numbness Neurologic: Denies numbness and Denies weakness Endocrine: Endocrine: Denies fatigue and Denies palpitations Allergic/Immunologic: Allergic/Immunologic: Denies wheezing Exam Const: General: comfortable and no acute distress Orientation/consciousness: patient oriented x3 Limitations: no limitations Resp: Effort & Inspection: normal respiratory effort Cardio: Rate: regular rate Rhythm: regular rhythm GI: Inspection: non-distended Skin: General skin exam: normal color and wounds noted (incision left hip C/D/I ) Wounds: wounds noted (incision left hip C/D/I ) Neuro: General: patient oriented x3 Extrem: Left lower extremity: hip/thigh Details: tenderness Location: of the hip Location: laterally and anteriorly, swelling (thigh soft ) Location: of the hip (lateral. ), abnormal ROM (limitations with internal/external rotation and flexion/extension due to recent surgical intervention ) and other (incision lateral hip c/d/i. ), knee Details: normal to inspection and normal ROM; no tenderness and no swelling, lower leg (Negative Dakota's Sign ) Details: no edema, ankle (+ankle dorsiflexion/plantarflexion ) Details: normal to inspection, no edema and normal ROM; no tenderness, no swelling and no warmth and foot Details: normal capillary refill, toes with normal ROM, vascular exam Details: dorsalis pedis pulse present and motor-sensory exam light-touch normal in all toes; no tenderness, no ecchymosis and no crepitus Psych: Mental Status: mental status grossly normal Affect: normal affect Objective Data Vital Signs Vital Signs: Vital Signs - 24 hr 01/19/22 09:51 01/19/22 15:25 01/19/22 15:40 Temperature 36.3 C L 36.2 C L Pulse Rate 64 65 71 Respiratory Rate 16 10 L 12 Blood Pressure 120/65 116/67 121/72 Pulse Oximetry 100 100 100 Oxygen Delivery Room Air Simple Face Mask Simple Face Mask Oxygen Flow Rate 8 8 01/19/22 15:55 01/19/22 16:10 01/19/22 16:25 Temperature Pulse Rate 72 74 72 Respiratory Rate 10 L 12 12 Blood Pressure 122/76 119/69 118/72 Pulse Oximetry 100 100 98 Oxygen Delivery Simple Face Mask Room Air Room Air Oxygen Flow Rate 8 01/19/22 16:40 01/19/22 16:55 01/19/22 17:10 Temperature 36.6 C Pulse Rate 74 79 80 Respiratory Rate 12 12 16 Blood Pressure 120/74 125/80 110/74 Pulse Oximetry 100 100 98 Oxygen Delivery Room Air Room Air Oxygen Flow Rate 01/19/22 17:25 01/19/22 17:55 01/19/22 18:19 Temperature 36.7 C 36.9 C Pulse Rate 81 73 Respiratory Rate 16 16 Blood Pressure 1
--- NOTE | 2022-01-20 12:55 | PM.DS ---
DS: Admitting Diagnosis Discharge Date 01/20/22 Admitting Diagnosis Left Hip VICENTE DS: Discharge Diagnosis Discharge Diagnosis (1) S/P total hip arthroplasty: Qualifiers: Laterality: left Qualified Code(s): Z96.642 - Presence of left artificial hip joint Code(s): Z96.649 - Presence of unspecified artificial hip joint Status: Acute Assessment and Plan: POD #1 : Left VICENTE Continue PT/OT. WBAT. Walker. HIGH FALL RISK. Continue pain control. Ice hip. Protect skin. DVT prophylaxis with Aspirin. SCDs. Incentive Spirometry Use reviewed. Monitor Dressing. Change prior to discharge. Bowel Regimen. Dispo: Home with Home Health pending progress with PT/OT DS: Summary Hospital Course Reason for hospitalization: Left VICENTE Hospital Course: 66 year old female admitted s/p Left VICENTE for postoperative medical management, paint control and mobilization with PT/OT. Patient progressed well with PT/OT. Pain and vitals stable throughout. She has been cleared to be discharged home with home health at this time. Follow up planned for 3 weeks in the outpatient orthopedic clinic with Dr. Mcbride. Status at Discharge Functional status at discharge: uses cane/walker Overall status at discharge: patient is progressing back to baseline Time Spent with Patient Time attestation: Total time spent providing and/or coordinating discharge services: Exam Const: General: comfortable and no acute distress Orientation/consciousness: patient oriented x3 Limitations: no limitations Resp: Effort & Inspection: normal respiratory effort Cardio: Rate: regular rate Rhythm: regular rhythm GI: Inspection: non-distended Skin: General skin exam: normal color and wounds noted (incision left hip C/D/I ) Wounds: wounds noted (incision left hip C/D/I ) Neuro: General: patient oriented x3 Extrem: Left lower extremity: hip/thigh Details: tenderness Location: of the hip Location: laterally and anteriorly, swelling (thigh soft ) Location: of the hip (lateral. ), abnormal ROM (limitations with internal/external rotation and flexion/extension due to recent surgical intervention ) and other (incision lateral hip c/d/i. ), knee Details: normal to inspection and normal ROM; no tenderness and no swelling, lower leg (Negative Dakota's Sign ) Details: no edema, ankle (+ankle dorsiflexion/plantarflexion ) Details: normal to inspection, no edema and normal ROM; no tenderness, no swelling and no warmth and foot Details: normal capillary refill, toes with normal ROM, vascular exam Details: dorsalis pedis pulse present and motor-sensory exam light-touch normal in all toes; no tenderness, no ecchymosis and no crepitus Psych: Mental Status: mental status grossly normal Affect: normal affect DS: Data Data Completed and Pending Labs on day of discharge: Labs from last 24 hours 01/20/22 01/20/22 05:01 05:01 WBC 13.3 H RBC 2.66 L Hgb 8.8 L D Hct 26.5 L MCV 99.6 MCH 33.1 MCHC 33.2 RDW 12.8 Plt Count 221 MPV 9.4 Immature Gran % (Auto) 0.6 H Neut % (Auto) 79.1 H Lymph % (Auto) 8.6 L [place] % (Auto) 11.4 H Eos % (Auto) 0.1 Baso % (Auto) 0.2 Lymph # (Auto) 1.14 [place] # (Auto) 1.5 H Eos # (Auto) 0.0 Baso # (Auto) 0.0 Abs Immat Gran (auto) 0.08 H Absolute Neuts (auto) 10.5 H Absolute Nucleated RBC 0.0 Nucleated RBC % 0.0 Sodium 134 L Potassium 3.6 Chloride 97 L Carbon Dioxide 26 Anion Gap 11 BUN 10 D Creatinine 0.80 Estim Creat Clear Calc 47 Estimated GFR > 60 Glucose 138 H Calcium 7.9 L Discharge Plan Discharge Patient Disposition: Home Health Service Discharge Instructions: Post Op Total Hip Replacement Instructions Dr. Justus Mcbride [phone] Your dressing will be changed prior to your discharge. You will be sent home with one additional dressing to be changed on post op day 7 by the home health RN. You may remove the dressing on post op day 14.
== END 2022-01-20 13:42 | disposition home health service (06) ==
LOC: ANHSURGERY 08:58 → ANH2MED 17:14
PROVIDERS: PCP Family Medicine; Visit Provider Orthopaedic Surgery
PROC: (CPT 27130; principal; 2022-01-19 11:00)
DX: M16.12 Unilateral primary osteoarthritis, left hip (principal); M72.2 Plantar fascial fibromatosis; E78.5 Hyperlipidemia, unspecified; N32.81 Overactive bladder; F41.9 Anxiety disorder, unspecified; F32.A Depression, unspecified; Z87.891 Personal history of nicotine dependence
CPT/HCPCS: 27130; 20550; 36415; 73501; 80048; 85025; 97110; 97161; 97165; 97535; A9270; C1776; J0171; J0690; J1040; J1100; J1170; J1885; J2250; J2270; J2370; J2405; J2704; J2710; J2795; J3010; J7120

== ENCOUNTER 2022-03-22 12:30 | Outpatient (RCR) | payer MEDICARE, SELFPAY ==
--- NOTE | 2022-02-23 12:37 | PTOPEVAL1 ---
Assessment and note entered by Priscilla Browning DPT Evaluation Information Assessment Status Evaluation Subjective Information Pt is s/p Zee ZHANG on 01/19/22. Pt had home health therapy for 3 weeks. Last saw MD on 02/10/22, and returns in April. Highest pain recently 4/10 and lowest 0/10. Pain increases with some of her exercises and she has trouble sleeping. Is currently using a cane and did not prior to surgery. Does not carry the laundry basket yet. Has been able to walk her dog but not as far as she used to. Feels stiff and sore in the morning until she gets moving. Pt is retired. Reported Pain Level Pain Score 2: Self Report Assessment PT Clinical Summary The patient is presenting to skilled therapy s/p Zee ZHANG on 01/19/22. She presents with strength impairments and is currently ambulating with a cane, which are contributing to her pain and difficulty with her typical activities. She will benefit from therapy to address her impairments and safely return to prior level of function. Plan of Care Interventions Electrical Stimulation,Gait Training,Hot Pack/Cold Pack,Manual Therapy,Neuro Re-education,Patient/ Caregiver Education,Therapeutic Activities, Therapeutic Exercise,Self-Care/Home Management PT Services Indicated Yes Treatment Frequency and 1 time a week for 4 weeks Duration These treatments will address the objective and functional deficits as defined above. The patient will be advanced safely and appropriately in order for the patient to progress towards his/her prior level of function. Additional exercises will be introduced and as well as a comprehensive home exercise program upon discharge, if needed, ?to ensure carryover of functional gains achieved in the clinic. This treatment plan has been reviewed and agreement upon by the patient.
--- NOTE | 2022-03-22 13:03 | PTOPDC ---
Assessment and note entered by Priscilla Browning DPT Evaluation Information Assessment Status Discharge Subjective Information Pt reports overall she is pain free, some stiffness in the morning. Overall feels very good with therapy and feels confident with discharge this visit. Has been completing HEP independently. Returns to MD in April. Pt is driving, doing ADL's at home without issue. Reported Pain Level Pain Score 1: Self Report Assessment PT Clinical Summary The patient has made excellent progress in therapy . She reports minimal pain and no difficulty with ADL's. She demonstrates functional range of motion , improved strength to almost equal to her R lower extremity, improved stair pattern, walking distance, and 5 times sit to stand. Due to her progress and lack of pain, plan for discharge at this time. She has been educated in a thorough HEP and to follow up with MD and/or PT as needed. Plan of Care PT Services Indicated No
== END 2022-03-23 14:05 | disposition home or self-care (01) ==
LOC: ANHGOSHPT 12:30
PROVIDERS: PCP Family Medicine; Visit Provider Orthopaedic Surgery
DX: Z47.1 Aftercare following joint replacement surgery (principal); Z96.649 Presence of unspecified artificial hip joint
CPT/HCPCS: 97110; 97112; 97140; 97161; 97530

== ENCOUNTER → 2022-09-01 12:58 | Outpatient (CLI) | payer MEDICARE, SELFPAY ==
--- NOTE | ~2022-09-01 | MM_ITS ---
EXAMINATION: MM screening [facility] BI w papi HISTORY: Screening TECHNIQUE: Craniocaudal and mediolateral oblique 3-D tomosynthesis images were obtained and synthetic 2-D images were generated. CAD analysis was submitted and interpreted. COMPARISON: Comparison to multiple prior studies sequentially, with oldest reviewed study dated 09/2017. BREAST PARENCHYMAL COMPOSITION: Breast composed of scattered areas of fibroglandular density FINDINGS: There is no evidence of suspicious mass, calcification, or architectural distortion to sugg est malignancy in either breast. There has been no suspicious interval change. IMPRESSION: 1. No mammographic evidence of malignancy. 2. Recommend routine screening mammography in one year. BI-RADS Category 1: Negative Reviewed, dictated and finalized at location A.
== END ==
PROVIDERS: PCP Family Medicine; Visit Provider Obstetrics & Gynecology Gynecology
DX: Z12.31 Encounter for screening mammogram for malignant neoplasm of breast (principal)
CPT/HCPCS: 77063; 77067

== ENCOUNTER → 2023-03-10 14:15 | Outpatient (CLI) | payer MEDICARE, SELFPAY ==
--- NOTE | ~2023-03-10 | DEXA_ITS ---
Bone Density Report Name: ONEIDA HANSEN Age: 67 Sex: Female Ethnicity: White Date of : 1955 Indication: osteopenia; height loss; postmenopausal Referring Provider: ALBERT, RIGOBERTO Study: Bone densitometry was performed. Exam Date: March 10, 2023 Accession number: [id number] Bone Density: Region BMD T-score Z-score Classification AP Spine (L1-L4) 1.043 0.0 2.1 Normal Femoral Neck (Right) 0.618 -2.1 -0.3 Osteopenia Total Hip (Right) 0.756 -1.5 0.0 Osteopenia World Health Organization criteria for BMD impression classify patients as: Normal (T-score at or above -1.0), Osteopenia (T-score between -1.0 and -2.5), or Osteoporosis (T-score at or below -2.5). 10-year Fracture Risk(1): Major Osteoporotic Fracture 12% Hip Fracture 2.3% Reported Risk Factors: [place] (), Neck BMD=0.618, BMI=26.7 (1) FRAX(R) Version 3.08. Fracture probability calculated for an untreated patient. Fracture probability may be lower if the patient has received treatment. Previous Exams: Region Exam Age BMD T-score BMD Change BMD Change Date g/cm2 vs Baseline vs Previous AP Spine(L1-L4) 03/10/2023 67 1.043 0.0 0.022 0.000 02/15/2021 65 1.043 0.0 0.022 0.022 12/05/2018 63 1.020 -0.2 0.000 0.000 10/22/2016 61 1.021 -0.2 Total Hip(Right) 03/10/2023 67 0.756 -1.5 -0.025 0.005 02/15/2021 65 0.751 -1.6 -0.030* -0.017 12/05/2018 63 0.768 -1.4 -0.013 -0.013 10/22/2016 61 0.781 -1.3 *Denotes significance at 95% confidence level, LSC for AP Spine = 0.022 g/cm2, LSC for Total Hip = 0.027 g/cm2 Clinical Information Provided by Patient: Has used the following medications: Vitamin D, Calcium Patient maximum height was 63.5 Menopause Age: 53 Drinks caffeinated beverages Onset of menses at age 8 Number of children 2 Missed period for more than 6 months in a row Impression: The patient has low bone mass, based on the Right Femoral Neck T-score. The patient has an estimated ten-year risk of hip fracture of 2.3% and an estimated ten-year risk of major fracture of 12%, based on the WHO FRAX algorithm. No significant bone loss was observed. Discussion: BONE DENSITY IS LOW AT ONE OR MORE SKELETAL SITES. This patient's lowest T-score is low at one or more skeletal sites. It meets the World Health Organization's (WHO) criteria for ?low bone mass? (T-score between -1.0 and -2.5). The patient'
== END ==
PROVIDERS: PCP Nurse Practitioner; Visit Provider Nurse Practitioner
DX: M85.88 Other specified disorders of bone density and structure, other site (principal); M85.851 Other specified disorders of bone density and structure, right thigh
CPT/HCPCS: 77080

== ENCOUNTER 2023-10-02 13:11 | Outpatient (CLI) | payer MEDICARE, SELFPAY ==
--- NOTE | ~2023-10-02 | MM_ITS ---
EXAMINATION: MM screening [facility] BI w papi HISTORY: Screening TECHNIQUE: Craniocaudal and mediolateral oblique 3-D tomosynthesis images were obtained and synthetic 2-D images were generated. CAD analysis was submitted and interpreted. COMPARISON: Comparison to multiple prior studies sequentially, with oldest reviewed study dated 09/2017. BREAST PARENCHYMAL COMPOSITION: Not dense: There are scattered areas of fibroglandular density. FINDINGS: There is no evidence of suspicious mass, calcification, or architectural distortion to sugg est malignancy in either breast. There has been no suspicious interval change. IMPRESSION: 1. No mammographic evidence of malignancy. 2. Recommend routine screening mammography in one year. BI-RADS Category 1: Negative Reviewed, dictated and finalized at location B.
== END 2023-10-02 13:12 ==
LOC: MICIMG 13:13
PROVIDERS: PCP Family Medicine; Visit Provider Nurse Practitioner
DX: Z12.31 Encounter for screening mammogram for malignant neoplasm of breast (principal)
CPT/HCPCS: 77063; 77067

== ENCOUNTER 2024-10-02 01:16 | Day surgery (SDC) | payer MEDICARE, SELFPAY ==
[2024-09-09 13:10] VITALS: BMI 27.2
[2024-10-02 08:51] VITALS: BP 123/82; PULSE 75; RESP 18; TEMP 36.7; O2SAT 100
[2024-10-02] MEDS: LACTATED RINGERS 1,000 ML 150 ML IV CONT (08:56)
--- NOTE | 2024-10-02 09:05 | P.PNAN_ITS ---
Anes - Initial Pre Proc Eval Procedure: Operation Date: 10/02/24 10:00 Proposed Procedures p Screening Colonoscopy - Sharan Zarate MD Date/Time: 10/02/24 09:05 Surgeon: Sharan Zarate MD Pre Op Diagnosis: screening Patient Data Age: 69 Gender: F Height: 1.57 m Weight: 67.2 kg Last Vital Signs Temp 98.1 F 10/02/24 08:51 Pulse 75 10/02/24 08:51 Resp 18 10/02/24 08:51 BP 123/82 10/02/24 08:51 Pulse Ox 100 10/02/24 08:51 O2 Del Method Room Air 10/02/24 08:51 Allergies Allergy/AdvReac Type Severity Reaction Status Date / Time tramadol Allergy Unknown Dizziness Verified 10/02/24 08:50 AND NAUSEA Home Medications ?Medication ?Instructions ?Recorded ?Confirmed ?Type calcium 500 mg (as 1 tablet PO DAILY 06/06/19 10/02/24 History carbonate)-vitamin D3 5 mcg (200 unit) tablet (Calcium 500 + D) cetirizine 10 mg capsule (Zyrtec) 10 mg PO DAILY 06/06/19 10/02/24 History cyanocobalamin (vitamin B-12) 1,000 mcg PO DAILY 06/06/19 10/02/24 History 1,000 mcg tablet (Vitamin B-12) famotidine 10 mg tablet 20 mg PO DAILY 06/06/19 10/02/24 History omega 8-lwv-rrk-fish oil 1,000 mg 1 cap PO DAILY 06/06/19 10/02/24 History (120 mg-180 mg) capsule (Fish Oil) acetaminophen 650 mg 1,300 mg PO Q12H PRN Pain 01/06/22 10/02/24 History tablet,extended release (Tylenol Arthritis Pain) cholecalciferol (vitamin D3) 1,250 4,000 unit PO DAILY 01/06/22 10/02/24 History mcg (50,000 unit) tablet atorvastatin 10 mg tablet 10 mg PO DAILY #90 tabs 12/13/23 10/02/24 Rx oxybutynin chloride 5 mg 5 mg PO DAILY #90 tabs 03/08/24 10/02/24 Rx tablet,extended release 24 hr escitalopram oxalate 10 mg tablet See Rx Instructions .Route 08/07/24 10/02/24 Rx .COMPLEX #90 tabs Patient hx anesthesia problems: none Family hx anesthesia problems: none Results Review: All pre-operative results and documents have been reviewed as part of the pre- operative evaluation. [facility] Past Medical History Medical History Macular hole of left eye Osteopenia Urinary frequency Vertigo Dizziness Trochanteric bursitis Degenerative joint disease (DJD) of hip Chronic right hip pain Left hip pain Anxiety Depression Former smoker History of colon polyps HLD (hyperlipidemia) OAB (overactive bladder) Surgical History Surgical History S/P total hip arthroplasty LT [facility] 01/19/22 History of tubal ligation Family History Family History Father Hypertension Social History Social History Smoking packs per day: 1 Smoking cigarettes per day: 20.0 Years smoked: 30 Smoking pack-years: 30.00 Smoking status: Former smoker Second hand tobacco smoke exposure: No Additional smoking assessment comments: DENIES ANY FORM OF TOBACCO USE Alcohol intake: current Drinks per week: 8 Substance use: never Substance use type: does not use Other substance usage details: CBD GUMMIES PRN PAIN Lack of Transportation: No Lack of Food: Never True Current Housing: I Have Housing Concerned About Future Housing: No Difficulty Paying Gas/Electric Bills: No Difficulty Paying for Meds: No Currently Unemployed: No Education: High School Diploma/GED Difficulty w/ Childcare or Family Care: No Living arrangements: with family Occupation/Education: retired Gender identity (if verbalized by the patient): Female Sexual Orientation (if Verbalized by the Patient): Straight or Heterosexual Spiritual care concerns: No Anes - Eval Final PreProcedure Day of Procedure 10/02/24 09:05 Patient weight: overweight Lungs: normal air movement Airway: Mallampati scale Neurological: alert and oriented Last oral intake: >/= 8 hours ASA classification: II Emergent: no Anesthetic plan: proceed Anesthesia type and monitoring: general GIVS and standard monitoring Results Review: All pre-operative results and documents have been reviewed as part of the pre- operative evaluation. Hyperlipidemia, ex smoker quit approx 1999. Active w gardening, walking dog, no cp or sob. Informed Consent: The patient's anesthetic plan and its attendant risks and benefits were discussed with the patient/family/POA. Questions were solicited and answers provided to the satisfaction of the patient/family/POA.
--- NOTE | 2024-10-02 09:33 | PM.HPGS ---
History of Present Illness History of Present Illness Consent: Risks, benefits, and alternatives have been discussed and questions answered. Patient agrees to proceed with procedure. Chief complaint: screening Narrative: Maria Esther Rader is a 69 year old female with colon polyp in 2019 Review of Systems Review of Systems: All systems reviewed & are unremarkable except as noted in HPI and below PMFSH Past Medical History Medical History Macular hole of left eye Osteopenia Urinary frequency Vertigo Dizziness Trochanteric bursitis Degenerative joint disease (DJD) of hip Chronic right hip pain Left hip pain Anxiety Depression Former smoker History of colon polyps HLD (hyperlipidemia) OAB (overactive bladder) Surgical History Surgical History S/P total hip arthroplasty LT [facility] 01/19/22 History of tubal ligation Family History Family History Father Hypertension Social History Social History Smoking packs per day: 1 Smoking cigarettes per day: 20.0 Years smoked: 30 Smoking pack-years: 30.00 Smoking status: Former smoker Second hand tobacco smoke exposure: No Additional smoking assessment comments: DENIES ANY FORM OF TOBACCO USE Alcohol intake: current Drinks per week: 8 Substance use: never Substance use type: does not use Other substance usage details: CBD GUMMIES PRN PAIN Lack of Transportation: No Lack of Food: Never True Current Housing: I Have Housing Concerned About Future Housing: No Difficulty Paying Gas/Electric Bills: No Difficulty Paying for Meds: No Currently Unemployed: No Education: High School Diploma/GED Difficulty w/ Childcare or Family Care: No Living arrangements: with family Occupation/Education: retired Gender identity (if verbalized by the patient): Female Sexual Orientation (if Verbalized by the Patient): Straight or Heterosexual Spiritual care concerns: No Meds Home Medications and Allergies Home Medications ?Medication ?Instructions ?Recorded ?Confirmed ?Type calcium 500 mg (as 1 tablet PO DAILY 06/06/19 10/02/24 History carbonate)-vitamin D3 5 mcg (200 unit) tablet (Calcium 500 + D) cetirizine 10 mg capsule (Zyrtec) 10 mg PO DAILY 06/06/19 10/02/24 History cyanocobalamin (vitamin B-12) 1,000 mcg PO DAILY 06/06/19 10/02/24 History 1,000 mcg tablet (Vitamin B-12) famotidine 10 mg tablet 20 mg PO DAILY 06/06/19 10/02/24 History omega 8-kmj-kxc-fish oil 1,000 mg 1 cap PO DAILY 06/06/19 10/02/24 History (120 mg-180 mg) capsule (Fish Oil) acetaminophen 650 mg 1,300 mg PO Q12H PRN Pain 01/06/22 10/02/24 History tablet,extended release (Tylenol Arthritis Pain) cholecalciferol (vitamin D3) 1,250 4,000 unit PO DAILY 01/06/22 10/02/24 History mcg (50,000 unit) tablet atorvastatin 10 mg tablet 10 mg PO DAILY #90 tabs 12/13/23 10/02/24 Rx oxybutynin chloride 5 mg 5 mg PO DAILY #90 tabs 03/08/24 10/02/24 Rx tablet,extended release 24 hr escitalopram oxalate 10 mg tablet See Rx Instructions .Route 08/07/24 10/02/24 Rx .COMPLEX #90 tabs Allergies Allergy/AdvReac Type Severity Reaction Status Date / Time tramadol Allergy Unknown Dizziness Verified 10/02/24 08:50 AND NAUSEA Vital Signs Vital Signs - 24 hr 10/02/24 08:51 Temperature 98.1 F Pulse Rate 75 Respiratory Rate 18 Blood Pressure 123/82 Pulse Oximetry 100 Oxygen Delivery Room Air Exam Const: General: comfortable and no acute distress HENMT: Face/Nose/Sinus: Normal nares present Eyes: General: appearance normal, both eyes and all related structures Neck: Neck: no JVD Resp: Auscultation: clear to auscultation bilaterally Cardio: Rate: regular rate Rhythm: regular rhythm GI: Inspection: non-distended GI Palp: Yes Soft to palpation Skin: General skin exam: normal color Neuro: Speech: normal speech Extrem: General: normal to inspection Psych: Mental Status: mental status grossly normal Assessment and Plan Assessment and plan (1) History of colon polyps: Code(s): Z86.010 - Personal history of colon polyps Status: Acute Assessment and Plan: colonoscopy
--- NOTE | 2024-10-02 09:46 | S_PTH ---
PATIENT: Maria Esther Rader LOC: [facility] Dahl#:[id number] AGE/SX: 69/F ROOM: RE10/02/[address]: Sharan Zarate MD : 1955 BED: DIS: 10/02/2024 SPEC #: [id number] RECD: 10/02/24 13:13 STATUS: HOLLY REJose #: [id number] JUDY: 10/02/24 09:[address]: Sharan Zarate DEPT: [facility] Surgical RECD BY: Ginny Sosa ENTERED: 10/02/24 13:13 SP TYPE: Surgical OTHR DR: Richard Arcos MD Tissues: A - Colon Polypectomy Procedures: Hematoxylin and Eosin Stain Gross and Microscopic Level 4
[2024-10-02 09:48] VITALS: BP 101/65; PULSE 66; RESP 21; O2SAT 97
[2024-10-02 09:58] VITALS: BP 105/69; PULSE 63; RESP 21; O2SAT 97
[2024-10-02 10:08] VITALS: BP 111/65; PULSE 60; RESP 18; O2SAT 97
== END 2024-10-02 10:09 | disposition home or self-care (01) ==
PROVIDERS: PCP Family Medicine; Referring Provider Physician Assistant Medical; Visit Provider Internal Medicine Gastroenterology
PROC: 0DJD8ZZ Inspection of Lower Intestinal Tract, Via Natural or Artificial Opening Endoscopic (ICD-10-PCS; CPT 45378; principal; 2024-10-02 10:00)
DX: Z12.11 Encounter for screening for malignant neoplasm of colon (principal); K63.5 Polyp of colon; K64.8 Other hemorrhoids; E78.5 Hyperlipidemia, unspecified; H35.342 Macular cyst, hole, or pseudohole, left eye; N32.81 Overactive bladder; R35.0 Frequency of micturition; F41.9 Anxiety disorder, unspecified; F32.A Depression, unspecified; M85.88 Other specified disorders of bone density and structure, other site; G89.29 Other chronic pain; M25.551 Pain in right hip; M16.10 Unilateral primary osteoarthritis, unspecified hip; F12.90 Cannabis use, unspecified, uncomplicated; Z96.642 Presence of left artificial hip joint; Z98.51 Tubal ligation status; Z87.891 Personal history of nicotine dependence
CPT/HCPCS: 45385; 88305; J2704; J7120

== ENCOUNTER 2025-01-08 12:54 | Outpatient (CLI) | payer MEDICARE, SELFPAY ==
--- NOTE | ~2025-01-08 | MM_ITS ---
EXAMINATION: MM screening [facility] BI w papi HISTORY: Screening TECHNIQUE: Craniocaudal and mediolateral oblique 3-D tomosynthesis images were obtained and synthetic 2-D images were generated. CAD analysis was submitted and interpreted. COMPARISON: 08/30/2021 BREAST PARENCHYMAL COMPOSITION: There are scattered areas of fibroglandular density. FINDINGS: There is no evidence of suspicious mass, calcification, or architectural distortion to suggest malignancy. Focal asymmetry in the upper-outer quadrant of the right breast, middle depth, with a few indeterminant calcifications. Asymmetry in the upper right breast, anterior depth, seen in the right MLO projection. Asymmetry in the upper left breast, anterior depth, seen in the left MLO projection, with questionable architectural distortion. IMPRESSION: 1. Focal asymmetry in the upper-outer quadrant of the right breast, middle depth, with a few indeterminant calcifications. Asymmetry in the upper right breast, anterior depth, seen in the right MLO projection. The study is incomplete. A diagnostic mammogram and a diagnostic ultrasound are recommended. 2. Asymmetry in the upper left breast, anterior depth, seen in the left MLO projection, with questionable architectural distortion. The study is incomplete. A diagnostic mammogram and a diagnostic ultrasound are recommended. BI-RADS 0: Incomplete-Need additional imaging evaluation. Reviewed, dictated and finalized at location Q. IMPRESSION: 1. Focal asymmetry in the upper-outer quadrant of the right breast, middle dept h, with a few indeterminant calcifications. Asymmetry in the upper right breast , anterior depth, seen in the right MLO projection. The study is incomplete. A diagnostic mammogram and a diagnostic ultrasound are recommended. 2. Asymmetry in the upper left breast, anterior depth, seen in the left MLO pro jection, with questionable architectural distortion. The study is incomplete. A diagnostic mammogram and a diagnostic ultrasound are recommended. BI-RADS 0: Incomplete-Need additional imaging evaluation.
== END 2025-01-08 12:55 | disposition home or self-care (01) ==
LOC: MICIMG 12:55
PROVIDERS: PCP Family Medicine; Visit Provider Nurse Practitioner
DX: Z12.31 Encounter for screening mammogram for malignant neoplasm of breast (principal); R92.8 Other abnormal and inconclusive findings on diagnostic imaging of breast
CPT/HCPCS: 77063; 77067

== ENCOUNTER 2025-03-12 08:54 | Outpatient (CLI) | payer MEDICARE, SELFPAY ==
--- NOTE | ~2025-03-12 | MM_ITS ---
EXAMINATION: MM diagnostic [facility] BI w papi INDICATION: 69 -year old female; BI-RADS 0, callback to evaluate Both breasts asymmetries. COMPARISON: 01/08/2025 through 07/14/2020 TECHNIQUE: Digital breast tomosynthesis True lateral view and spot compression pain CC and MLO views of Both breasts were obtained. FINDINGS: There are scattered areas of fibroglandular density. The asymmetries seen in the Both breasts on the screening mammogram effaces on additional views, compatible with normal overlapping tissue. The calcifications in the right breast are mostly benign vascular calcifications. IMPRESSION: Both breasts finding represents superimposition of fibroglandular tissue. No further investigation necessary. RECOMMENDATION: Annual screening mammography in 12 months BI-RADS 2, BENIGN Reviewed, dictated and finalized at location A. DRILL OPERATOR IMPRESSION: Both breasts finding represents superimposition of fibroglandular tissue. No fu rther investigation necessary. RECOMMENDATION: Annual screening mammography in 12 months BI-RADS 2, BENIGN
== END 2025-03-12 08:55 | disposition home or self-care (01) ==
LOC: MICIMG 08:55
PROVIDERS: PCP Family Medicine; Visit Provider Obstetrics & Gynecology Gynecology
DX: R92.8 Other abnormal and inconclusive findings on diagnostic imaging of breast (principal)
CPT/HCPCS: 77062; 77066; G0279

== ENCOUNTER 2025-03-18 12:59 | Outpatient (CLI) | payer MEDICARE, SELFPAY ==
--- NOTE | ~2025-03-18 | DEXA_ITS ---
Bone Density Report Name: ONEIDA HANSEN Age: 69 Sex: Female Ethnicity: White Date of : 1955 Indication: osteopenia; Referring Provider: ALBERT, RIGOBERTO Study: Bone densitometry was performed. Exam Date: March 18, 2025 Accession number: [id number] Bone Density: Region BMD T-score Z-score Classification AP Spine(L1-L4) 1.037 -0.1 2.1 Normal Femoral Neck (Right) 0.641 -1.9 0.0 Osteopenia Total Hip (Right) 0.717 -1.8 -0.2 Osteopenia World Health Organization criteria for BMD impression classify patients as: Normal (T-score at or above -1.0), Osteopenia (T-score between -1.0 and -2.5), or Osteoporosis (T-score at or below -2.5). 10-year Fracture Risk(1): Major Osteoporotic Fracture 11% Hip Fracture 2.2% Reported Risk Factors: [place] (), Neck BMD=0.641, BMI=27.2 (1) FRAX(R) Version 3.08. Fracture probability calculated for an untreated patient. Fracture probability may be lower if the patient has received treatment. Previous Exams: -- Region Exam Age BMD T-score BMD Change BMD Change Date g/cm2 vs Baseline vs Previous -- AP Spine (L1-L4) 03/18/2025 69 1.037 -0.1 1.6% -0.6% 03/10/2023 67 1.043 0.0 2.1% 0.0% 02/15/2021 65 1.043 0.0 2.1% 2.2% 12/05/2018 63 1.020 -0.2 0.0% 0.0% 10/22/2016 61 1.021 -0.2 Total Hip(Right) 03/18/2025 69 0.717 -1.8 -8.3%* -5.2%* 03/10/2023 67 0.756 -1.5 -3.2% 0.6% 02/15/2021 65 0.751 -1.6 -3.8%* -2.2% 12/05/2018 63 0.768 -1.4 -1.6% -1.6% 10/22/2016 61 0.781 -1.3 -- *Denotes significance at 95% confidence level, LSC for AP Spine = 0.022 g/cm2, LSC for Total Hip = 0.027 g/cm2 Clinical Information Provided by Patient: Has used the following medications: Vitamin D, Calcium Patient maximum height was 63 Menopause Age: 53 Drinks caffeinated beverages Onset of menses at age 8 Number of children 2 Impression: The patient has low bone mass, based on the Right Femoral Neck T-score. The patient has an estimated ten-year risk of hip fracture of 2.2% and an estimated ten-year risk of major fracture of 11%, based on the WHO FRAX algorithm. The BMD for the Total Hip(Right) decreased, changing by -5.2% since the last DXA exam. Discussion: BONE DENSITY IS LOW AT ONE OR MORE SKELETAL SITES. This patient's lowest T-score is low at one or more skeletal sites. It meets the World Health Organization's (WHO) criteria for ?low bone mass? (T-score between -1.0 and -2.5). The patient's 10-year risk of fracture as calculated by FRAX is less than the threshold where pharmacological therapy is recommended by the National Osteoporosis Foundation (NOF). However, all treatment decisions require clinical judgment and consideration of individual patient factors, including patient preferences, comorbidities, previous drug use, risk factors not captured in the FRAX model (e.g., frailty, falls, vitamin D deficiency, increased bone turnover, interval significant decline in bone density) and possible under or overestimation of fracture risk by FRAX. The patient should follow a healthful lifestyle (good nutrition with adequate calcium and vitamin D, and appropriate weight-bearing exercise). Follow-Up: Consider repeating this study in 2 years to reassess this patient's status, or sooner if there is some new clinical indication. Reported by: MEAGHAN on 03/18/2025 1:14:00 PM. Reviewed, dictated and finalized at location A.
== END 2025-03-18 13:00 | disposition home or self-care (01) ==
LOC: MICIMG 13:00
PROVIDERS: PCP Family Medicine; Visit Provider Nurse Practitioner
DX: M85.89 Other specified disorders of bone density and structure, multiple sites (principal); Z78.0 Asymptomatic menopausal state
CPT/HCPCS: 77080